=== PATIENT | male | born 1985 | race Caucasian/White ===

== ENCOUNTER 2018-04-02 18:09 | Emergency (ER) | payer SELFPAY ==
[~2018-04-02] VITALS: Ht 172.7 cm; Wt 75.0 kg
[2018-04-02 18:19] VITALS: BP 126/84
== END 2018-04-02 23:09 | disposition left against medical advice (07) ==
LOC: ER 18:09
DX: R10.9 Unspecified abdominal pain (principal); Z53.21 Procedure and treatment not carried out due to patient leaving prior to being seen by health care provider